=== PATIENT | female | born 2000 | race Asian ===

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

== ENCOUNTER 2022-04-30 17:14 | Emergency (ER) | payer OTHER, MEDICAID, SELFPAY ==
[2022-04-30 17:17] VITALS: BP 127/66; PULSE 107; RESP 18; TEMP 36.6; O2SAT 96; BMI 39.4
--- NOTE | 2022-04-30 17:51 | ED.URI ---
HPI - URI/Sore Throat <SANDRA Laura - Last Filed: 04/30/22 19:35> General Chief Complaint: Upper Respiratory Symptoms Stated Complaint: pain, swelling rt side of throat Time Seen by Provider: 04/30/22 17:47 Source: patient Mode of arrival: Ambulatory History of Present Illness HPI Narrative: This is a 21-year-old female presents to the emergency department with throat pain and swelling for the last 4 days, states that she has swollen lymph nodes now on her neck, denies history of strep throat in the past. States that she has not been eating because her throat pain been significant. Patient denies fever, nausea or vomiting but states she has anterior cervical lymphadenopathy, denies any STI or recent unprotected sex with new partner. Related Data Previous Rx's Medication Instructions Recorded benzocaine 15 mg-menthol 2.6 mg 1 tien mucous membrane Q2-4H PRN 04/30/22 lozenges (Sore Throat (benzocaine sore throat #18 ea with menthol)) Allergies Allergy/AdvReac Type Severity Reaction Status Date / Time No Known Allergies Allergy Verified 04/30/22 17:20 Review of Systems <SANDRA Laura - Last Filed: 04/30/22 19:35> Review of Systems Narrative: Review of systems is negative for acute abnormalities unless otherwise noted in HPI Patient History <SANDRA Laura - Last Filed: 04/30/22 19:35> Medical History Insomnia Family History Father Obesity, unspecified obesity severity, unspecified obesity type Grandfather Hyperlipidemia Diabetes type 2, controlled Obesity, unspecified obesity severity, unspecified obesity type Grandmother Hyperlipidemia Diabetes type 2, controlled Obesity, unspecified obesity severity, unspecified obesity type Social History Smoking Status: Never smoker second hand exposure: No alcohol intake: never substance use type: does not use Smoking Status: Never smoker alcohol intake frequency: 0-2 drinks per day Substance Use Type: does not use Exam <SANDRA Laura - Last Filed: 04/30/22 19:35> Narrative Exam Narrative: Reviewed vitals signs and nursing notes. General: cooperative, comfortable, in no acute distress, well groomed HEENT: symmetrical facial expressions, moist mucous membranes, posterior pharynx is erythematous with tonsillar adenopathy and exudate, uvula is midline, anterior cervical lymphadenopathy on the right with nodes less than 1 cm, low suspicion for peritonsillar abscess or retropharyngeal abscess. Cardiovascular: Tachycardic rate and regular rhythm, S1-S2 without additional sounds no peripheral edema, warm extremities Respiratory: normal effort, able to speak in complete sentences, without wheezing, stridor, or abnormal breath sounds. No retractions or tachypnea. Neuro: normal speech and cognition, A&O x3, ambulatory, clear speech Psych: mental status is grossly normal, congruent mood, normal affect, pleasant and cooperative Initial Vital Signs Initial Vital Signs: Vital Signs Temperature 98 F 04/30/22 17:17 Pulse Rate 107 H 04/30/22 17:17 Respiratory Rate 18 04/30/22 17:17 Blood Pressure 127/66 04/30/22 17:17 Pulse Oximetry 96 04/30/22 17:17 Oxygen Delivery Method 04/30/22 17:17 <Tavia Benavides DO - Last Filed: 05/01/22 09:23> Initial Vital Signs Initial Vital Signs: Vital Signs Temperature 98 F 04/30/22 17:17 Pulse Rate 107 H 04/30/22 17:17 Respiratory Rate 18 04/30/22 17:17 Blood Pressure 127/66 04/30/22 17:17 Pulse Oximetry 96 04/30/22 17:17 Oxygen Delivery Method 04/30/22 17:17 Course <SANDRA Laura - Last Filed: 04/30/22 19:35> Orders Ordered: Discontinued Medications Dexamethasone (Dexamethasone 10 Mg/Ml Vial) 10 mg PO NOW ONE Stop: 04/30/22 17:51 Last Admin: 04/30/22 18:11 Dose: 10 mg Documented By: JUNE Ketorolac Tromethamine (Ketorolac 30 Mg/Ml Vial) 15 mg IM NOW ONE Stop: 04/30/22 17:51 Last Admin: 04/30/22 18:11 Dose: 15 mg Documented By: JUNE Penicillin G Benzathine (Penicillin G Benzathine 1,200,000 Unit/2 Ml Syringe) 1,200,000 unit IM NOW ONE Stop: 04/30/22 17:51 Last Admin: 04/30/22 18:11 Dose: 1,200,000 unit Documented By: CTS Vital Signs Vital signs: Vital Signs - 8 hr 04/30/22 17:17 Temperature 98 F Pulse Rate 107 H Respiratory Rate 18 Blood Pressure 127/66 Pulse Oximetry 96 Oxygen Delivery Method Room Air <Tavia Benavides DO - Last Filed: 05/01/22 09:23> Orders Ordered: Discontinued Medications Dexamethasone (Dexamethasone 10 Mg/Ml Vial) 10 mg PO NOW ONE Stop: 04/30/22 17:51 Last Admin: 04/30/22 18:11 Dose: 10 mg Documented By: CTS Ketorolac Tromethamine (Ketorolac 30 Mg/Ml Vial) 15 mg IM NOW ONE Stop: 04/30/22 17:51 Last Admin: 04/30/22 18:11 Dose: 15 mg Documented By: CTS Penicillin G Benzathine (Penicillin G Benzathine 1,200,000 Unit/2 Ml Syringe) 1,200,000 unit IM NOW ONE Stop: 04/30/22 17:51 Last Admin: 04/30/22 18:11 Dose: 1,200,000 unit Documented By: CTS Vital Signs Vital signs: Vital Signs - 8 hr 04/30/22 17:17 Temperature 98 F Pulse Rate 107 H Respiratory Rate 18 Blood Pressure 127/66 Pulse Oximetry 96 Oxygen Delivery Method Room Air MDM - URI/Sore Throat <SANDRA Laura - Last Filed: 04/30/22 19:35> Lab Data Labs: Lab Results 04/30/22 Range/Units 17:20 SARS-CoV-2 (PCR) Negative (Negative) Point of Care Testing Rapid Strep A Positive MDM Narrative Medical decision making narrative: This is a 21-year-old female presents to the emergency department for evaluation of her throat pain, her rapid strep was positive for group a strep, her posterior pharynx is erythematous with tonsillar adenopathy and right-sided anterior cervic lymphadenopathy with nose less than 1 cm. She had tachycardia without fever, was given 15 mg of IM Toradol, 10 mg of dexamethasone p.o. and 1.2 million units of penicillin G IM. Patient has a history of metabolic syndrome and obesity. She denies any other symptoms other than her sore throat and states she has not been able to eat for the last couple of days due to the pain. She was given strict return precautions, low suspicion for retropharyngeal abscess, peritonsillar abscess, Bill's angina, epiglottitis, or other. Patient is appropriate and amenable to discharge home. Vital signs are stable on repeat examination is unremarkable. Patient has been informed of results. Patient has been given strict return to ER precautions for any new or worsening symptoms. Patient understands to follow up closely with outpatient providers as instructed. Patient understands plan and agrees to discharge home. All questions and concerns answered at this time. #66: Appropriate Testing for Patients with Pharyngitis [x] The patient has acute pharyngitis/tonsillitis. The patient was prescribed antibiotics today and a strep test or culture was performed. [[employer]] <Tavia Benavides, DO - Last Filed: 05/01/22 09:23> Lab Data Labs: Lab Results 04/30/22 Range/Units 17:20 SARS-CoV-2 (PCR) Negative (Negative) Point of Care Testing Rapid Strep A Positive Discharge Plan Departure Patient Disposition: Home Clinical Impression: Strep pharyngitis Instructions: Strep Throat Activity Restrictions/Additional Instructions: *You have been diagnosed with strep throat. You were treated in the emergency department with penicillin 1.2 million units, this is 1 time treatment for strep throat. After today, please start ibuprofen 800 mg every 8 hours with food and water to help treat your pain and you may also take Tylenol with this :650 mg every 6 hours. Please use throat lozenges as needed and try to stay hydrated. Please come back to the emergency department if you have worsening but you should start getting better quickly. Thank you for trusting us with your care, please avoid sharing germs for at least 24 hours. Please return to the walk-in clinic for another throat swab if you have recurrence of your symptoms. *What to do: *Please continue to take your regular medications as directed. [x ] New medication prescriptions sent to your pharmacy: [[facility] ] [ ] New medication written as a paper prescription [ ] No new medications given *Please follow up with your primary care provider in 2-3 days, call for an appointment. Let them know you were seen in the Emergency Department and that we asked that you be seen for follow-up. We will electronically transmit a record of today's note if your PCP is in our system *If you do not have a primary care provider please contact [phone] to establish care with one of the [facility] primary care providers. *Return to Emergency Department if you should have any new, worsening, or concerning symptoms, such as [fever greater than 101F, chills, worsening pain, persistent vomiting or other bothersome symptoms]. Prescriptions: New Sore Throat (benzocaine-menth) 15-2.6 mg lozenge 1 tien mucous membrane Q2-4H PRN (Reason: sore throat) Qty: 18 0RF Referrals: Daksha Valencia ARNP [Primary Care Provider] - Visit Report Forms: Patient Portal/API <Tavia Benavides DO - Last Filed: 05/01/22 09:23> Cosign ED Attending Bella Attestation: I was immediately available in the department for consultation. Documentation has been reviewed. I agree with assessment and plan.
[2022-04-30] MEDS: KETOROLAC 30 MG/ML VIAL 15 MG IM (18:11)
[2022-04-30] MEDS: PENICILLIN G BENZATHINE 1,200,000 UNIT/2 ML SYRINGE 1200000 UNIT IM (18:11)
[2022-04-30] MEDS: DEXAMETHASONE 10 MG/ML VIAL PO (18:11)
[2022-04-30 18:16] LABS: COVID19 -Nasal RAPID Negative (Negative)
== END 2022-04-30 18:21 | disposition home or self-care (01) ==
PROVIDERS: Emergency Medicine; Emergency Provider Nurse Practitioner Critical Care Medicine; PCP Nurse Practitioner
DX: J02.0 Streptococcal pharyngitis (principal); Z20.822 Contact with and (suspected) exposure to COVID-19
CPT/HCPCS: 87635; 87880; 96372; 99283; C9803; J0561; J1100; J1885

== ENCOUNTER → 2023-06-10 14:38 | Outpatient (CLI) | payer OTHER, MEDICAID, SELFPAY ==
[2023-06-10 15:29] LABS: Alanine Aminotransferase 273 IU/L (<35); Albumin 4.8 g/dL (3.5-5.0); Albumin Globulin Ratio 1.2 (1.0-2.8); Alkaline Phosphatase 70 U/L (38-126); Aspartate Aminotransferase 128 IU/L (14-36); BUN Creatinine Ratio 22.8 (6-22); Bilirubin Total 0.4 mg/dL (0.2-1.3); Blood Urea Nitrogen 13 mg/dL (7-17); Calcium 10.3 mg/dL (8.4-10.2); Carbon Dioxide 25 mmol/L (22-32); Chloride 102 mmol/L (98-107); Estimated Glomerular Filt Rate > 60 mL/min (>60); Glucose 91 mg/dL (70-100); HEMOLYSIS < 15 (0-50); Potassium 4.2 mmol/L (3.4-5.1); Sodium 139 mmol/L (137-145); Total Protein 8.8 g/dL (6.3-8.2)
== END ==
PROVIDERS: PCP Nurse Practitioner; Referring Provider Family Medicine; Visit Provider Family Medicine
DX: R74.01 Elevation of levels of liver transaminase levels (principal); Z00.00 Encounter for general adult medical examination without abnormal findings
CPT/HCPCS: 36415; 80053